=== PATIENT | female | born 1980 | race Two or more races ===

== ENCOUNTER 2021-02-17 19:00 | Emergency (ER) | payer MEDICAID, OTHER ==
[~2021-02-17] VITALS: Ht 165.1 cm; Wt 78.5 kg
[2021-02-17] MEDS ORDERED: SODIUM CHLORIDE 0.9% 1,000 ML IVB ONE (19:15)
[2021-02-17] MEDS ORDERED: LABETALOL HCL 5 MG/ML 4ML SYRINGE IV ONE ×3 (19:30→21:00)
[2021-02-17 19:45] LABS: Basophils # (auto) 0 10 ^3/uL (0-0.2); Basophils % (auto) 0.4 % (0.0-2.0); Eosinophils # (auto) 0.2 10 ^3/uL (0-0.8); Eosinophils % (auto) 2.2 % (0.0-7.0); Hematocrit 40.1 % (36.0-46.0); Hemoglobin 13.8 g/dL (12.2-16.2); Lymphocytes # (auto) 2.9 10 ^3/uL (0.4-5.4); Lymphocytes % (auto) 25.8 % (10.0-50.0); Mean Corpuscular Hemoglobin 30.9 pg (28.0-32.0); Mean Corpuscular Hgb Conc. 34.4 g/dL (32.0-36.0); Mean Corpuscular Volume 89.6 fL (80.0-100.0); Monocytes # (auto) 0.6 10 ^3/uL (0-1.3); Monocytes % (auto) 5.5 % (0.0-12.0); Neutrophils # (auto) 7.4 10 ^3/uL (1.6-8.6); Neutrophils % (auto) 66.1 % (37.0-80.0); Nucleated Red Blood Cells % 0.1 %; Red Blood Cells 4.48 10^6/uL (4.0-5.20); Red Cell Distribution Width 13.5 % (11.8-14.3); White Blood Cell 11.2 10^3/uL (4.4-10.8)
[2021-02-17 20:05] LABS: Albumin 2.7 g/dL (3.4-5.0); Calcium 8.6 mg/dL (8.5-10.1); Potassium 3.9 mmol/L (3.5-5.1)
[2021-02-17 20:09] LABS: BUN/Creatinine Ratio 21.1; Bilirubin, Total 0.2 mg/dL (0.2-1.0); Total Protein 6.5 g/dL (6.4-8.2)
[2021-02-17 20:09] LABS: INR 0.96 (0.9-1.15); Partial Thromboplastin Time 26.2 sec (23.6-33.0)
[2021-02-17] MEDS ORDERED: LABETALOL HCL 5 MG/ML ML 20ML VIAL IV ONE ×2 (20:59→21:41)
[2021-02-17] MEDS ORDERED: SODIUM CHL 0.9% STA (21:34)
[2021-02-17] MEDS ORDERED: [UNRECOGNIZED DRUG - OTHER] STA (21:34)
[2021-02-17] MEDS ORDERED: TRANEXAMIC ACID 10 ML ONE (21:44)
[2021-02-17] MEDS: MAGNESIUM SULFATE 1GM/100ML 100 ML IV SCH ×2 (21:45→22:45)
[2021-02-17] MEDS ORDERED: ESMOLOL HCL-NS 10MG/ML 250 ML IV SCH (22:45)
[2021-02-17] MEDS ORDERED: hydrALAZINE HCL 20 MG/ML VL IV PRN (23:30)
[2021-02-17 23:34] VITALS: BP 179/124
[2021-02-17 23:49] VITALS: BP 176/135
[2021-02-18] MEDS ORDERED: hydrALAZINE HCL 25 MG TAB PO SCH
[2021-02-18] MEDS ORDERED: hydrALAZINE HCL 20 MG/ML VL IV ONE ×3 (00:45→03:00)
[2021-02-18] MEDS ORDERED: ACETAMINOPHEN 500 MG TAB PO ONE (01:30)
[2021-02-18 02:09] VITALS: BP 158/104
[2021-02-18 02:17] VITALS: BP 158/104
[2021-02-18 02:22] VITALS: BP 167/101
[2021-02-18 02:24] LABS: Basophils # (auto) 0 10 ^3/uL (0-0.2); Basophils % (auto) 0.2 % (0.0-2.0); Eosinophils # (auto) 0.2 10 ^3/uL (0-0.8); Eosinophils % (auto) 1.1 % (0.0-7.0); Hematocrit 36.6 % (36.0-46.0); Hemoglobin 12.4 g/dL (12.2-16.2); Lymphocytes # (auto) 2.1 10 ^3/uL (0.4-5.4); Mean Corpuscular Hemoglobin 30.8 pg (28.0-32.0); Mean Corpuscular Hgb Conc. 33.9 g/dL (32.0-36.0); Mean Corpuscular Volume 90.9 fL (80.0-100.0); Monocytes # (auto) 0.8 10 ^3/uL (0-1.3); Monocytes % (auto) 5.7 % (0.0-12.0); Neutrophils # (auto) 11.7 10 ^3/uL (1.6-8.6); Nucleated Red Blood Cells % 0.1 %; Red Blood Cells 4.03 10^6/uL (4.0-5.20); White Blood Cell 14.9 10^3/uL (4.4-10.8)
[2021-02-18 02:43] LABS: Albumin 2.2 g/dL (3.4-5.0); BUN/Creatinine Ratio 20.2; Calcium 8.1 mg/dL (8.5-10.1); Potassium 4.4 mmol/L (3.5-5.1)
[2021-02-18 02:45] LABS: Bilirubin, Total 0.6 mg/dL (0.2-1.0); Total Protein 5.5 g/dL (6.4-8.2)
[2021-02-18 03:01] VITALS: BP 163/102
== END 2021-02-18 03:15 | disposition short-term general hospital (02) ==
LOC: ER 19:03
DX: O45.8X2 Other premature separation of placenta, second trimester (principal); O14.92 Unspecified pre-eclampsia, second trimester; Z3A.21 21 weeks gestation of pregnancy
CPT/HCPCS: 36415; 76805; 80053; 84702; 85025; 85610; 85730; 86850; 86900; 86901; 86920; 93005; 96361; 96365; 96366; 96368; 96375; 96376; 99285; J0360; J3490; P9016